=== PATIENT | male | born 1965 | race Caucasian/White ===

== ENCOUNTER 2023-04-07 07:56 | Emergency (ER) | payer OTHER, SELFPAY ==
[2023-04-07 08:03] VITALS: BP 152/100; PULSE 85; RESP 20; TEMP 36.4; O2SAT 95; BMI 34.3
[2023-04-07] MEDS: ONDANSETRON 4 MG RAPDIS TABLET SL (08:27)
[2023-04-07 08:41] LABS: Internal Control Within Normal Limits; Strep A Antigen Screen Negative
[2023-04-07 08:43] LABS: Influenza Virus A Antigen Positive; Influenza Virus B Antigen Negative; Internal Control Within Normal Limits; SARS-CoV-2 Ag NEGATIVE (NEGATIVE)
--- NOTE | 2023-04-07 09:00 | ED.GENADUL1 ---
HPI - General Adult General Chief complaint: Upper Respiratory Infection Stated complaint: URTI/ SHORTNESS OF BREATH Time Seen by Provider: 04/07/23 08:00 Source: patient Mode of arrival: walk-in Limitations: no limitations History of Present Illness HPI narrative: Patient presents with flu-like illness symptoms - nasal congestion, fever, cough, headache, fatigue, generalized aches, nausea. Symptoms began 3 days ago and then worsened over the next 24-48 hours. He has been taking OTC meds at home but nothing works . is concerned because he has giant cell arteritis Related Data Previous Rx's Medication Instructions Recorded ondansetron 4 mg disintegrating 4 mg PO Q6H PRN nausea and 04/07/23 tablet vomiting #20 tabs oseltamivir 75 mg capsule (Tamiflu) 75 mg PO BID 5 days #10 caps 04/07/23 Allergies Allergy/AdvReac Type Severity Reaction Status Date / Time No Known Drug Allergies Allergy Verified 04/07/23 08:06 PFSH PFS Social History Smoking status: Former smoker Exam Narrative Exam Narrative: Nurses notes and vital signs reviewed and patient is not hypoxic. afebrile General: Well-appearing and in no apparent distress. Skin: Warm, dry, no pallor noted. No rash. Head: Normocephalic, atraumatic. Neck: Supple, non-tender. No meningismus. No cervical lymphadenopathy Eye: Pupils are equal, round and EOMI. No scleral icterus. Ears, Nose, Mouth, and Throat: TM are clear, mild posterior oropharynx erythema and nasal mucosal hypertrophy, uvula is mid-line Oral mucosa is moist Cardiovascular: Regular Rate and Rhythm without murmur, gallop or rub. Respiratory: No accessory muscle use or respiratory distress. Lungs are clear to auscultation, no wheezing, rales or rhonchi Back: No CVA tenderness Musculoskeletal: normal ROM, no calf or popliteal tenderness, no lower extremity edema/swelling GI: Abdomen is soft, non-distended. Normal bowel sounds. No tenderness to palpation. No rebound, guarding, or rigidity noted. Neurological: A&O x4. No cranial nerve dysfunction observed. No truncal ataxia. Moves all extremities. Sensation intact. Psychiatric: Cooperative and interactive. Normal mood and affect. Constitutional Vital Signs, click to edit/add: Last Vital Signs Temp 97.6 F 04/07/23 08:03 Pulse 85 12/27/23 08:03 Resp 20 04/07/23 08:03 BP 152/100 H 04/07/23 08:03 Pulse Ox 95 04/07/23 08:03 Course Vital Signs Vital signs: Vital Signs Temperature 97.6 F 04/07/23 08:03 Pulse Rate 85 04/07/23 08:03 Respiratory Rate 20 04/07/23 08:03 Blood Pressure 152/100 H 04/07/23 08:03 Pulse Oximetry 95 04/07/23 08:03 Temperature 97.6 F 04/07/23 08:03 Pulse Rate 85 04/07/23 08:03 Respiratory Rate 20 04/07/23 08:03 Blood Pressure 152/100 H 04/07/23 08:03 Pulse Oximetry 95 04/07/23 08:03 Medical Decision Making MDM Narrative Medical decision making narrative: The patient tested positive for influenza. He was given oral dissolvable Zofran in the emergency department. He was discharged home with prescriptions for Zofran and Tamiflu. He is instructed to return to the emergency department if he worsens Patient advised to rest, stay at home, practice social distancing, take Motrin and Tylenol for pain and fever if not allergic, stay well hydrated with Gatorade or similar drinks if vomiting or eat as tolerated if not and take any meds as prescribed. Reviewed reasons to return including rapid increase in respiratory rate, shortness of breath, confusion, inability to keep down sips of swallowed liquids for more than 24 hours. Asked patient to encourage any ill contacts to stay home and practice similar advice. Lab Data Lab results reviewed: Yes I reviewed the patient's lab results Labs: Lab Results 04/07/23 Range/Units 08:08 SARS-CoV-2 (PCR) Negative (NEGATIVE) Influenza Type A Ag Positive A Influenza Type B Ag Negative Streptococcus Screen Negative Discharge Plan Discharge Chief Complaint: Upper Respiratory Infection Clinical Impression: Influenza Patient Disposition: Home, Self-Care Time of Disposition Decision: 08:59 Prescriptions / Home Meds: New oseltamivir [Tamiflu] 75 mg capsule 75 mg PO BID 5 Days Qty: 10 0RF ondansetron 4 mg tablet,disintegrating 4 mg PO Q6H PRN (Reason: nausea and vomiting) Qty: 20 0RF Instructions: Influenza (ED) Stand Alone Forms: Portal Instructions
[2023-04-07 09:19] VITALS: BP 146/17; PULSE 83; RESP 20; O2SAT 93
[2023-04-07 15:48] LABS: SARS-CoV-2 NAA NOT DETECTED (NOT DETECTE)
== END 2023-04-07 09:22 | disposition home or self-care (01) ==
LOC: ER 09:20
PROVIDERS: Emergency Provider Emergency Medicine; PCP Family Medicine
DX: J10.1 Influenza due to other identified influenza virus with other respiratory manifestations (principal); M31.6 Other giant cell arteritis; Z87.891 Personal history of nicotine dependence
CPT/HCPCS: 87070; 87635; 87804; 87811; 87880; 99283